=== PATIENT | male | born 1995 ===

== ENCOUNTER 2019-10-15 07:01 | Outpatient (CLI) | payer MEDICARE, MEDICAID ==
--- NOTE | 2019-10-15 11:22 | Fluoroscopy Report ---
MODIFIED BARIUM SWALLOW INDICATION: DYSPHAGIA UNSPECIFIED R13.10 TECHNIQUE: Swallowing was evaluated in the lateral position under direct fluoroscopy. FINDINGS: The patient was evaluated with thin liquids and puree consistencies. Deglutition is normal. There is no evidence for penetration or aspiration. IMPRESSION: Unremarkable exam. Fluoroscopic time: 2.6 minutes Number of fluoroscopic images: 1 Signer Name: Jeancarlos Loaiza Jr, MD Signed: 10/15/2019 11:18 AM Workstation Name: [id number]
== END 2019-10-15 07:02 | disposition home or self-care (01) ==
LOC: PT 07:01
PROVIDERS: ATTEND Family Medicine
DX: R13.10 Dysphagia, unspecified (principal)
CPT/HCPCS: 74230